=== PATIENT | male | born 1985 | race Caucasian/White ===

== ENCOUNTER 2020-10-15 14:16 | Outpatient (RCR) | payer SELFPAY ==
[2017-03-26 20:47] VITALS: BMI 36.1
== END 2020-11-19 23:59 ==
LOC: IMMUN 14:16
PROVIDERS: Visit Provider Family Medicine
DX: Z23 Encounter for immunization (principal)
CPT/HCPCS: 0001A; 0002A; 91300

== ENCOUNTER 2021-01-22 19:17 | Emergency (ER) | payer SELFPAY ==
[2021-01-22 19:18] VITALS: BP 154/91; PULSE 75; RESP 18; TEMP 36.9; O2SAT 100; BMI 35.2
--- NOTE | 2021-01-22 22:28 | EDS_ITS ---
HPI History of Present Illness Chief Complaint: Neuro S/Sx Informant: patient Onset/Context/Timing Onset: Today Context: Gradual Onset Timing: Continuous Quality: trouble moving right face Current Severity: Moderate Maximum Severity: Moderate Worsened by: n/a Relieved by: n/a Associated Symptoms Associated Symptoms: inc tearing R eye Narrative Narrative: Gradual onset symptoms right side of his face over the course of the day. Increased tearing in his right eye no diplopia or peripheral neurologic symptoms below the neck. He denies any recent injury. He goes hiking every Wednesday, and is concerned about the possibility of Lyme disease. He does not recall any tick bites that he knows of, nor has he had any rashes or red spots. He is healthy otherwise. He is in the [place] years from [place]. [facility] Medical History (Updated 01/22/21 @ 22:[address] Andrey Driscoll MD) Achilles rupture, left no medical history Home Medications No Known/Unobtainable [No Known Home Medications] 03/26/17 [History Last Taken Unknown] prednisone 50 mg PO QHS #6 tab 01/22/21 [Rx Last Taken Unknown] valacyclovir [Valtrex] 1,000 mg PO TID #21 tab 01/22/21 [Rx Last Taken Unknown] Allergy/AdvReac Type Severity Reaction Status Date / Time No Known Allergies Allergy Verified 01/22/21 22:33 Social History Smoking Status: Current every day smoker tobacco type: pipe ROS ROS ED Constitutional Constitutional ED: Denies chills or fever(s) Eyes Eyes: Denies change in vision or diplopia ENT ENT ED: Denies rhinorrhea or sore throat Cardiovascular Cardiovascular: Denies chest pain or palpitations Respiratory/Chest Respiratory/Chest: Denies cough or dyspnea Gastrointestinal Gastrointestinal: Denies abdominal pain, diarrhea, nausea or vomiting Genitourinary Genitourinary ED: Denies dysuria or hematuria Musculoskeletal Musculoskeletal: Denies back pain or neck pain Integumentary Denies abscess or rash Neurologic Neurologic: Reports as per HPI and other Details: Facial droop ; Denies headache(s) or weakness Psychiatric Psychiatric: Denies anxiety or suicidal thoughts EXAM Physical Exam Const Vital Signs: 01/22/21 19:18 Temperature 98.4 F Temperature Source Temporal Pulse Rate 75 Respiratory Rate 18 Blood Pressure 154/91 H Blood Pressure Mean 112 Pulse Ox 100 Oxygen Delivery Method Room Air Positive well nourished and well developed General Appearance ED: well developed and NAD HEENT Reports moist mucous membranes normocephalic and atraumatic Eyes PERRL and EOMs intact bilaterally Neck full ROM and supple Resp normal respiratory effort and clear to auscultation bilaterally Cardio regular rate, regular rhythm and no murmurs GI non-tender and non-distended Auscultation: normoactive bowel sounds Palpation: soft Back/Spine no CVA tenderness General Back: other FROM Extremity normal to inspection General Extremety ED: Negative for edema, pulses abnormal or tenderness General Extremity: Negative for edema or pulses abnormal Neuro oriented x3 and no sensory deficits noted Neuro Narrative: Patient has a right peripheral 7th nerve palsy, with the forehead moving asymmetrically as well, weak on the right. Mild ptosis present. Mild hyper lacrimation from the right eye without signs of conjunctivitis. Mild slurred speech due to right mouth drooping. Sensorium / Orientation: awake and alert Motor Exam: strength 5/5 throughout Skin no rashes or lesions noted and no wounds MDM MDM MDM Narrative Medical decision making narrative: Patient does not have any other findings of Lyme disease, but I think it is reasonable to draw the blood Lyme screen which we did. He was given follow-up for that. He was also given prednisone, and a prescription for prednisone and Valtrex for what appears to be Lyme disease. He was reassured this is not a stroke, he is comfortable with this overall plan. Discharge Plan Triage Chief Complaint: Neuro S/Sx ED Provider: Andrey Driscoll Dx/Rx/DC Orders Clinical Impression: Right-sided Griggs's palsy Instructions: ED Griggs's Palsy Prescriptions: New prednisone 50 mg tablet 50 mg PO QHS Qty: 6 RF: 0 valacyclovir [Valtrex] 1 gram tablet 1,000 mg PO TID Qty: 21 RF: 0 No Action No Known Home Medications RF: 0 Primary Care Provider: Care Physician,No Primary Referrals: Red Murray MD [STAFF PHYSICIAN] - As Needed Care Physician,No Primary [Primary Care Provider] - Disposition Disposition: Home, Self Care
[2021-01-22] MEDS: predniSONE 20 MG Tablet 60 MG PO (22:36)
[2021-01-22 22:44] VITALS: BMI 35.9
[2021-01-22 22:47] LABS: Lyme Ab Screen Interpretation REF LAB
[2021-01-24 21:10] LABS: Lyme Scn Total Ab w/Rflx <0.91 ISR (0.00-0.90)
== END 2021-01-22 22:52 | disposition home or self-care (01) ==
PROVIDERS: Emergency Provider Emergency Medicine
DX: G51.0 Bell's palsy (principal); F17.290 Nicotine dependence, other tobacco product, uncomplicated
CPT/HCPCS: 86618; 99283